=== PATIENT | male | born 1985 | race Caucasian/White ===

== ENCOUNTER 2016-10-27 12:36 | Emergency (ER) | payer OTHER ==
--- NOTE | ~2016-10-27 | CR127 ---
[facility] A Service [facility] RADIOLOGY TEXT RESULTS PATIENT: PUJA HAYES LOCATION: SED : 81 UNIT #: [id number] AGE: [address]: Anahy Moody APRN SEX: M ORDER DR: [id number] [address] [address] [id number] E MR#: [id number] Acc #: [id number] NAME: PUJA HAYES : 1985 SEX: M STUDY DATE/TIME: 10/27/2016 13:06 UNIT: SED ROOM: STUDY DESCRIPTION: CR Foot Complete Min 3 View Rt Attending Physician: Anahy Moody A.P.R.N. Ordering Physician: Anahy Richardson A.P.R.N. Primary Care Physician: Cheyenne Schroeder Aprn MEDICAL IMAGING REPORT This report is preliminary unless electronic signature is present. EXAM Right foot 3 views 10/27/2016 HISTORY Anterior and lateral right foot pain for 3 days. Patient stepped in a ditch and rolled foot while at work. FINDINGS Three views of the right foot demonstrate no fracture. There is a 5 mm corticated calcification within the posterior plantar soft tissues of the right foot immediately inferior to the calcaneus which is of unknown significance. Clinical correlation is recommended. The bones are normally mineralized. There is mild soft tissue swelling about the right foot. IMPRESSION 1. No evidence of fracture but there is a 5 mm well corticated calcification seen along the posterior plantar surface of the right foot inferior to the calcaneus which is of unknown etiology. Clinical correlation is recommended. 2. Soft tissue swelling about the right foot. Dictated by... Homero Sanchez M.D. THIS IS AN ELECTRONICALLY VERIFIED REPORT Homero Sanchez M.D. at 10/28/2016 10:35 AM ANNA/sawyer TD: 10/27/2016 13:30 JOB #: [id number] [facility] A Service [facility] RADIOLOGY TEXT RESULTS PATIENT: PU[facility]AYES [id number] [birth year] UNIT #: [id number] AGE: [address]: Anahy Moody APRN SEX: M ORDER DR: MEDICAL IMAGING REPORT Page 1 of 1
[~2016-10-27 12:36] MED LIST: AMOXICILLIN500 M1 PO; FLEXERIL10 M1 PO; LISINOPRIL20 MG PO; LORTAB ELIXIR15 ML PO; NABUMETONE PO; NO MEDICATIONS; PHENERGAN12.5 MG/SU RC; PHENERGAN25 MG PO; PRILOSEC20 MG PO; VICODIN 5/500 T1 TAB PO; VOLTAREN75 MG PO
== END 2016-10-27 14:19 | disposition home or self-care (01) ==
LOC: SED 12:36
DX: S93.601A Unspecified sprain of right foot, initial encounter (principal); I10 Essential (primary) hypertension; K21.9 Gastro-esophageal reflux disease without esophagitis; X50.1XXA Overexertion from prolonged static or awkward postures, initial encounter; Y92.69 Other specified industrial and construction area as the place of occurrence of the external cause
CPT/HCPCS: 29540; 73630; 99283